=== PATIENT | male | born 1965 ===

== ENCOUNTER 2025-01-28 10:00 | Day surgery (SDC) | payer OTHER ==
[2025-01-20 12:05] VITALS: BP 141/86
[~2025-01-28] VITALS: Ht 182.9 cm; Wt 97.5 kg
[2025-01-28] MEDS ORDERED: CEFTRIAXONE SODIUM 2,000 MG VIAL ONE (10:49)
[2025-01-28] MEDS ORDERED: METRONIDAZOLE/SODIUM CHLORIDE 500 MG/100 ML PIGGYBACK IV ONE (10:49)
[2025-01-28] MEDS ORDERED: BUPIVACAINE HCL/MPF 0.5% 30ML VIAL ONE (11:33)
[2025-01-28] MEDS ORDERED: DIBUCAINE 30 GM TUBE ONE (11:33)
[2025-01-28] MEDS ORDERED: POVIDONE-IODINE 118 ML BOTT TOP ONE (11:34)
[2025-01-28] MEDS ORDERED: LIDOCAINE HCL 1%/EPINEPHRINE 20ML VIAL IJ ONE (11:34)
[2025-01-28] MEDS ORDERED: HEMOSTATIC MATRIX 1 KIT KIT TOP ONE (11:34)
[2025-01-28] MEDS ORDERED: CELECOXIB200 MG PO (13:46)
[2025-01-28] MEDS ORDERED: NEURONTIN300 MG PO (13:46)
[2025-01-28] MEDS ORDERED: PERCOCET 5-3251 EACH PO (13:46)
[2025-01-28] MEDS ORDERED: INTESTINEX680 M1 PO (13:46)
== END 2025-01-28 17:45 | disposition home or self-care (01) ==
LOC: CIR.AMB 10:00
PROVIDERS: ATTEND Surgery
DX: K64.2 Third degree hemorrhoids (principal); K64.8 Other hemorrhoids; K60.1 Chronic anal fissure; K62.3 Rectal prolapse; K62.5 Hemorrhage of anus and rectum; K64.3 Fourth degree hemorrhoids